=== PATIENT | female | born 1960 | race Hispanic/Latino ===

== ENCOUNTER 2024-07-07 20:25 | Emergency (ER) | payer SELFPAY ==
--- NOTE | 2024-07-07 21:15 | HMCIMG ---
CT HEAD/BRAIN W/O CONTRAST HISTORY: Status post fall COMPARISON: None TECHNIQUE: Multiple sequential axial images of the head were obtained from the base of the skull through vertex. Patient was not given contrast through intravenous route. FINDINGS: The ventricles and extraventricular CSF spaces are nondilated for patient's age. There is no midline shift, mass effect or herniation. No acute intracranial bleed is seen. Visualized portion of the paranasal sinuses are grossly within normal limits. IMPRESSION: 1. No acute intracranial bleed is seen. CT was performed with one or more following dose reduction techniques: automated exposure control, adjustment of the mA and kv according to patient's size, or use of a iterative reconstruction technique.
[2024-07-07 21:18] LABS: SARS-CoV-2, RNA, NAAT NEGATIVE SARS CoV-2 (NEGATIVE)
[2024-07-07 21:26] LABS: INFLUENZA TYPE A Negative For Type A (NEGATIVE); INFLUENZA TYPE B Negative For Type B (NEGATIVE)
[2024-07-07 21:45] LABS: BASOPHILS # (AUTO) 0.02 K/uL (0.00-0.20); BASOPHILS % (AUTO) 0.3 % (0.0-5.0); HEMATOCRIT 34.6 % (36-48); IMMATURE GRANULOCYTE ABSOLUTE 0.07 K/uL (0-1); LYMPHOCYTES # (AUTO) 0.6 K/uL (1.0-4.8); LYMPHOCYTES % (AUTO) 8.9 % (21.0-51.0); MEAN CORPUSCULAR HEMOGLOBIN 28.3 pg (27.0-33.0); MEAN CORPUSCULAR HGB CONC 33.5 g/dL (32.0-36.0); MEAN CORPUSCULAR VOLUME 84.4 fL (79-99); MONOCYTES # (AUTO) 0.3 K/uL (0.1-1.0); MONOCYTES % (AUTO) 3.9 % (3.0-13.0); NEUTROPHILS # (AUTO) 6.2 K/uL (1.8-7.7); NEUTROPHILS % (AUTO) 85.9 % (40.0-77.0); PLATELET COUNT (AUTO) 70 K/uL (130-400); RED CELL DISTRIBUTION WIDTH 13.8 % (11.0-15.5); WHITE BLOOD COUNT (AUTO) 7.2 K/uL (4.8-10.8)
[2024-07-07 22:07] LABS: PLATELET MORPHOLOGY COMMENT DECREASED
[2024-07-07] MEDS: 0.9%NACL 1000ML 1,000 ML IV STA (22:26)
--- NOTE | 2024-07-07 23:33 | ERN ---
ED Note History of Present Illness Stated Complaint: FALL Chief Complaint: Mechanical Fall Time Seen by MD: 20:34 Time Seen by Midlevel: 20:36 Dictation: 63-year-old female with no past medical history coming in status post syncopal episode while she was washing dishes. Patient states she has been sick this last week with nausea vomiting and diarrhea and fever. States her knees was diagnosed with RSV and was taking care of her. At this time patient is complaining of a headache, denies any chest pain, chest discomfort, shortness of breath. No neurological complaints. Allergies: Coded Allergies: No Known Allergies (Unverified Allergy, Unknown, 07/07/24) Past Medical History Past Medical History: High Cholesterol, Hypertension Surgical History: None Review of System Dictation Constitutional: Negative for fever,chills, and weight loss Eyes: Negative for injury, pain,redness, and discharge ENT: Negative for injury,pain or swelling Cardiovascular: Negative for chest pain, palpitations, and edema Respiratory: Negative for shortness of breath, cough, and wheezing, Abdomen/GI: Negative for abdominal pain, nausea, vomiting, diarrhea, and consti pation Back: Negative for injury and pain : Negative for injury, bleeding and discharge MS/Extremity: Negative for injury and deformity Skin: Negative for rash, and discoloration Neuro: Positive for headache, no weakness, no numbness, no tingling, and no seizure Psych: Negative for suicide ideation, homicidal ideation, and hallucinations Review of Systems: was completed Initial Vital Sign VS Vital Signs Date Time Temp Pulse Resp B/P (MAP) Pulse Ox O2 Delivery O2 Flow Rate FiO2 07/07/24 20:27 98.2 98 16 114/74 98 Room Air 0 07/07/24 22:48 21 Physical Exam Dictation General: awake, alert, NAD Head/Face: Normocephalic, atraumatic Eyes: PERRL, EOMI, vision at baseline ENT: oral cavity clear, TMs clear, no signs of infection Neck: Trachea midline, supple, no nuchal rigidity Cardiovascular: RRR, normal S1/S2, No MRGs, no JVD Respiratory: CTAB, no respiratory distress, No rales or wheezes Abdomen: Soft, non-tender, non-distended, normal bowel sounds, no guarding or rebound. Skin: Warm, dry, normal turgor, no rash MS/Extremity: Pulses equal, no cyanosis, neurovascular intact, FROM Neuro: COAx4, GCS 15, strength 5/5, CN 2-12 intact, normal cerebellar exam, n ormal gait, Psych: Normal behavior, mood, and affect normal Results (Laboratory/Radiology) Laboratory/Radiology Laboratory Tests Test 07/07/24 20:55 07/07/24 21:16 Influenza Type A Antigen Negative For Type A Influenza Type B Antigen Negative For Type B SARS-CoV-2, RNA, NAAT NEGATIVE SARS CoV-2 White Blood Count 7.2 K/uL (4.8-10.8) Red Blood Count 4.10 MIL/uL (4.00-5.50) Hemoglobin 11.6 g/dL (12.0-16.0) L Hematocrit 34.6 % (36-48) L Mean Corpuscular Volume 84.4 fL (79-99) Mean Corpuscular Hemoglobin 28.3 pg (27.0-33.0) Mean Corpuscular Hemoglobin Concent 33.5 g/dL (32.0-36.0) Red Cell Distribution Width 13.8 % (11.0-15.5) Platelet Count 70 K/uL (130-400) L Mean Platelet Volume 13.0 fL (7.5-10.5) H Immature Granulocyte % (Auto) 1.0 % (0-1) Neutrophils (%) (Auto) 85.9 % (40.0-77.0) H Lymphocytes (%) (Auto) 8.9 % (21.0-51.0) L Monocytes (%) (Auto) 3.9 % (3.0-13.0) Eosinophils (%) (Auto) 0.0 % (0.0-8.0) Basophils (%) (Auto) 0.3 % (0.0-5.0) Neutrophils # (Auto) 6.2 K/uL (1.8-7.7) Lymphocytes # (Auto) 0.6 K/uL (1.0-4.8) L Monocytes # (Auto) 0.3 K/uL (0.1-1.0) Eosinophils # (Auto) 0.00 K/uL (0.00-0.70) Basophils # (Auto) 0.02 K/uL (0.00-0.20) Absolute Immature Granulocyte (auto 0.07 K/uL (0-1) Nucleated Red Blood Cells 0.0 % (0.0-0.19) White Cell Morphology Comment See comments Platelet Morphology Comment DECREASED Sodium Level 135 mmol/L (136-145) L Potassium Level 4.0 mmol/L (3.5-5.1) Chloride Level 98 mmol/L (101-111) L Carbon Dioxide Level 33 mmol/L (21-32) H Blood Urea Nitrogen 22 mg/dL (7-18) H Creatinine 1.0 mg/dL (0.5-1.0) Glomerular Filtration Rate Calc 63 mL/min (>90) Random Glucose 134 mg/dL (70-105) H Total Calcium 10.2 mg/dL (8.5-10.1) H Labs Reviewed?: Yes EKG Comment: Date:07/07/24 Time:8 Ventricular rate:93 WA interval:157 QRS duration:28 QT/QTc:321/400 EKG interpretation: Sinus rhythm Reviewed by ED Attending no STEMI interpreted by ER MD CT Scan Comment: [address] [address] IMAGING REPORT Signed PATIENT: JOEY SPARROW MR#: [id number] : 1960 SEX: F AGE: 63 LOCATION: [facility] ORDER 40 STATUS: REG ER REPORT#: [id number] SERVICE 39 REASON: syncope ORDERING PHYSICIAN: MAGGI HOPE NP PROCEDURE: HEAD WO - CT HEAD/BRAIN W/O CONTRAST CT HEAD/BRAIN W/O CONTRAST HISTORY: Status post fall COMPARISON: None TECHNIQUE: Multiple sequential axial images of the head were obtained from the base of the skull through vertex. Patient was not given contrast through intravenous route. FINDINGS: The ventricles and extraventricular CSF spaces are nondilated for patient's age. There is no midline shift, mass effect or herniation. No acute intracranial bleed is seen. Visualized portion of the paranasal sinuses are grossly within normal limits. IMPRESSION: 1. No acute intracranial bleed is seen. CT was performed with one or more following dose reduction techniques: automated exposure control, adjustment of the mA and kv according to patient's size, or use of a iterative reconstruction technique. DICTATED BY: PETER ALVAREZ MD DATE: 07/07/242110 ELECTRONICALLY SIGNED BY: PETER ALVAREZ MD DATE: 07/07/242114 ED Course ED Course Orders Procedure Category Date Status Time Cbc With Differential LAB 07/07/24 Complete 20:40 Basic Metabolic Panel LAB 07/07/24 Complete 20:40 Covid Rna Naat LAB 07/07/24 Complete 20:40 Ct Head/Brain W/O CT 07/07/24 Resulted Contrast 20:40 Influenza Type A & B, LAB 07/07/24 Complete Rapid 20:40 0.9%Nacl 1000ml (Ns PHA 07/07/24 Complete 1000ml) 21:58 12 Lead Ekg Tracing- EKG 07/07/24 Logged Technical 22:18 Current Medications Medications (Trade) Dose Ordered Sig/Husam Route PRN Reason Start Time Stop Time Status Last Admin Dose Admin Sodium Chloride 1,000 ml @ 1,000 mls/hr Q1H STAT IV 07/07/24 21:58 07/07/24 22:57 DC 07/07/24 22:26 Vital Signs Date Time Temp Pulse Resp B/P (MAP) Pulse Ox O2 Delivery O2 Flow Rate FiO2 07/07/24 22:48 99.5 96 16 120/73 97 Room Air* 0 21 07/07/24 20:27 98.2 98 16 114/74 98 Room Air 0 Medical Decision Making MDM MDM: 63-year-old female with no past medical history coming in status post syncopal episode while she was washing dishes. Patient states she has been sick this last week with nausea vomiting and diarrhea and fever. States her knees was diagnosed with RSV and was taking care of her. At this time patient is complaining of a headache, denies any chest pain, chest discomfort, shortness of breath. No neurological complaints. On physical exam patient has clear bilateral lung sounds, abdomen is soft and nondistended no tenderness to palpation. No CVA tenderness. Patient is awake alert and oriented x4, no neurological deficits, no numbness or tingling. PERRLA, EOM intact. CBC shows no leukocytosis, mild normocytic anemia, thrombocytopenia at 70. However patient is not complaining of any dark or red stools, denies any vaginal bleeding, no hematuria and no bloody emesis. Chemistry shows hyponatremia 135, mild hypochloremia, creatinine normal. Hyperglycemia at 1:34 a.m.. Serologies negative for influenza and COVID. CT of her head shows no acute intracranial bleed. Patient received fluids here in the emergency room. Discussed findings with patient. Educated patient she was slightly dehydrated could be related to the diarrhea and vomiting she had draw in the week could have caused her also her syncopal episode. Educated patient she needs to follow up with her PCP and return to the ER if any symptoms worsen. Patient verbalized understanding, answered all questions. Differential diagnosis: Arrhythmia, dehydration, ICH, brain tumor Rationale: Tests considered and ordered secondary to shared decision making include: Previous outside records reviewed: Old ER visits. Risk of complication and/or morbidity or mortality of patient management: None Medications-Per medication reconciliation Need for hospitalization: Patient does not meet criteria for hospitalization. Need for emergency major/minor surgery: No There are no social concerns with this patient. Prescription drug management Prescriptions will include symptomatic care Patient's prior external medical records from other ER visits were reviewed by me as indicated. Prior testing and results from previous visits were reviewed. Prior tests were taken into account with medical decision making and resource utilization, independent historian/historians were used to obtain complete medical history. I independently interpreted the test that were performed, results were reviewed by me and considered findings on radiology if ordered. Medical management and examination interpretation discussions were had by me with other qualified healthcare professionals as indicated for the patient's care. DX & DISP Disposition: Discharge Departure Impression: Primary Impression: Syncope Additional Impression: Dehydration Condition: Stable Additional Instructions: please follow up with PCP in 1-2 days. Return to ER if symptoms worsen. Referrals: NONE (PCP) Time of Disposition: 23:31 I have reviewed the case, and I agree with, Diagnosis and Plan MAGGI HOPE NP Jul 07, 2024 23:33
[2024-07-08] MEDS: acetaMINOPHEN 500 MG TABLET PO STA (00:01)
[2024-07-08 00:25] VITALS: BP 122/68; PULSE 92; RESP 16; TEMP 99.2; O2SAT 98
--- NOTE | 2024-07-08 06:28 | EKG ---
[facility] Test Date: 2024-07-07 Test Time: 22:38:20 Pat Name: JOEY SPARROW Department: ED Room: Gender: F Radio Announcer: [id number] : 1960 Requested By: MAGGI HOPE Order Number: [id number] Reading MD: Roman Dickinson Measurements Intervals [place]ahan Rate: 93 P: 39 AR: 157 QRS: 28 QRSD: 81 T: 26 QT: 321 QTc: 400 Interpretive Statements Sinus rhythm No previous ECG available for comparison Electronically Signed On 07-08-2024 18:10:50 [employer] by Roman Dickinson Please click the below link to view image of tracing.
== END 2024-07-08 00:30 | disposition home or self-care (01) ==
LOC: EDH 20:25
DX: R55 Syncope and collapse (principal); E86.0 Dehydration; E78.00 Pure hypercholesterolemia, unspecified; I10 Essential (primary) hypertension; Z20.822 Contact with and (suspected) exposure to COVID-19
CPT/HCPCS: 99284; 96360; 70450; 87635; 80048; 85025; 87804 ×2; 36415; 93005; J7030